=== PATIENT | female | born 1980 | race Caucasian/White ===

== ENCOUNTER → 2021-02-10 | Outpatient (CLI) | payer OTHER ==
[2021-02-11 11:14] LABS: RHEUMATOID ARTHRITIS FACTOR <10.0 IU/mL (0.0-13.9)
== END ==
LOC: LAB 11:39
PROVIDERS: Nurse Practitioner Family
DX: M25.562 Pain in left knee (principal); M79.10 Myalgia, unspecified site; D89.9 Disorder involving the immune mechanism, unspecified; R76.8 Other specified abnormal immunological findings in serum
CPT/HCPCS: 36415; 73560; 82550; 82728; 83520; 85652; 86140; 86200; 86431

== ENCOUNTER → 2021-11-06 | Outpatient (CLI) | payer OTHER | LOC: EMI 10-30 10:00 | DX: G37.9 Demyelinating disease of central nervous system, unspecified (principal); M50.21 Other cervical disc displacement, high cervical region | CPT/HCPCS: 70553; 72156; A9577 ==